=== PATIENT | female | born 1990 | race African-American/Black ===

== ENCOUNTER 2016-10-29 21:13 | Outpatient (CLI) | payer OTHER ==
[~2016-10-29] VITALS: Ht 160 cm; Wt 76.4 kg
[~2016-10-29 21:13] MED LIST: FLAGYL500 MG PO; MACROBID100 MG PO
[2016-10-29 21:36] VITALS: BP 120/73
[2016-10-29 22:30] VITALS: BP 121/62
[2016-10-29 22:35] LABS: EOSINOPHIL (%) 0.3 % (0-5); HEMATOCRIT 31.5 % (36.0-46.0); IMMATURE GRANULOCYTE (%) 0.8 % (0.0-0.7); IMMATURE GRANULOCYTE COUNT 0.1 K/uL; INSTRUMENT ABS NEUTROPHIL CT 6.1 K/uL; LYMPHOCYTE COUNT 0.6 K/uL (1.0-2.8); MCH 26.6 PG (29.0-34.0); MCHC 31.1 G/DL (30.0-36.0); MCV 85.6 FL (83-99); MONOCYTE (%) 5.7 % (3-12); MONOCYTE COUNT 0.4 K/uL (0-0.8); NEUTROPHIL (%) 85.3 % (45-76); NEUTROPHIL COUNT 6.1 K/uL (1.8-6.4); RBC DIS.WIDTH-CV 25.3 % (11.8-14.6); RBC DIS.WIDTH-SD 75.6 % (39-53); RED BLOOD COUNT 3.68 M/uL (3.80-5.20); WHITE BLOOD COUNT 7.2 K/uL (4.1-10.2)
[2016-10-29 22:55] LABS: CANDIDA DNA PROBE NEGATIVE; GARDNERELLA DNA PROBE POSITIVE; INTERNAL CONTROL VALID? YES
[2016-10-29 23:15] LABS: MEAN PLAT.VOLUME 10.2 uM^3 (9.5-12.4); PLAT.SUFFICIENCY DECREASED; PLATELET COUNT 110 K/uL (156-360)
[2016-10-29 23:16] LABS: ADD MIUA? YES; BILIRUBIN NEGATIVE; BLOOD NEGATIVE; COLOR YELLOW ((YELLOW)); GLUCOSE (STRIP) 50; KETONES 20; LEUKOCYTES NEGATIVE; NITRITE NEGATIVE; PROTEIN (STRIP) 100; SPECIFIC GRAVITY 1.015 (1.000-1.030)
[2016-10-29 23:20] LABS: BACTERIA NONE SEEN /HPF; EPITHELIAL CELLS RARE /HPF; MUCUS TRACE /LPF; RED BLOOD CELLS 0-5 /HPF (0-5); UCUL ADDED? NO; WHITE BLOOD CELLS 0-5 /HPF (0-5)
[2016-10-29 23:28] LABS: DRSB INTERNAL CONTROL PASS; PROBE CHECK PASS; SPECIMEN PROCESSING CONTROL PASS
[2016-10-29 23:38] VITALS: BP 125/70
[2016-10-30] VITALS (14 sets, daily range): BP systolic 96–134; BP diastolic 55–81
[2016-10-30 00:02] LABS: ALKALINE PHOSPHATASE 179 IU/L (3-129); ANION GAP 9 MEQ/L (2-14); CHLORIDE 104 MEQ/L (99-109); GFR ESTIMATE (CALCULATED) > 59 mL/min/; GLUCOSE 85 mg/dL (70-99); POTASSIUM 3.1 MEQ/L (3.7-5.4); SAMPLE HEMOLYSIS CHECK 0; SAMPLE ICTERIC CHECK 0; SAMPLE LIPEMIA CHECK 0; SODIUM 136 MEQ/L (136-147); TOTAL BILIRUBIN 0.4 MG/DL (0.0-1.0); UREA NITROGEN (BUN) 5 mg/dL (9-23)
[2016-10-30] MEDS ORDERED: PRENATAL TABLE1 EAC3 PO (07:28)
[2016-10-30] MEDS ORDERED: IRON160 M1 PO (07:29)
[2016-10-31 03:19] VITALS: BP 111/69
[2016-10-31 07:21] VITALS: BP 106/56
[2016-10-31 12:19] LABS: HEMATOCRIT 30.7 % (36.0-46.0); MCH 26.1 PG (29.0-34.0); MCV 87.2 FL (83-99); MEAN PLAT.VOLUME 10.6 uM^3 (9.5-12.4); PLATELET COUNT 118 K/uL (156-360); RBC DIS.WIDTH-CV 24.9 % (11.8-14.6); RBC DIS.WIDTH-SD 75.9 % (39-53); RED BLOOD COUNT 3.52 M/uL (3.80-5.20); WHITE BLOOD COUNT 4.1 K/uL (4.1-10.2)
[2016-10-31 13:46] LABS: CHLAMYDIA TRACHOMATIS NEGATIVE; NEISSERIA GONORRHOEAE NEGATIVE
== END 2016-10-31 14:42 | disposition home or self-care (01) ==
LOC: LDRP-OP 21:13 → 2WEST 21:15 → LDRP-OP 01-14 16:03
PROVIDERS: Midwife; Obstetrics & Gynecology
DX: O60.03 Preterm labor without delivery, third trimester (principal); Z3A.33 33 weeks gestation of pregnancy; O99.013 Anemia complicating pregnancy, third trimester; O99.843 Bariatric surgery status complicating pregnancy, third trimester; Z87.891 Personal history of nicotine dependence; Z86.19 Personal history of other infectious and parasitic diseases
CPT/HCPCS: 59025; 76770; 76818; 80053; 81003; 82731; 85025; 85027; 85384; 87081; 87480; 87491; 87510; 87591; 87653; 87660; G0378; J7120

== ENCOUNTER 2016-12-04 05:04 | Inpatient (IN) | payer OTHER ==
[2016-12-04] VITALS (24 sets, daily range): BP systolic 100–144; BP diastolic 55–86
[~2016-12-04] VITALS: Ht 157.5 cm; Wt 76.3 kg
[~2016-12-04 05:04] MED LIST changes: +IRON160 M1 PO; +PRENATAL TABLE1 EAC3 PO
[2016-12-04 08:42] LABS: EOSINOPHIL (%) 3.2 % (0-5); EOSINOPHIL COUNT 0.3 K/uL (0-0.3); HEMATOCRIT 31.7 % (36.0-46.0); IMMATURE GRANULOCYTE (%) 0.4 % (0.0-0.7); INSTRUMENT ABS NEUTROPHIL CT 5.1 K/uL; LYMPHOCYTE COUNT 2.2 K/uL (1.0-2.8); MCH 26.9 PG (29.0-34.0); MCHC 31.2 G/DL (30.0-36.0); MCV 86.1 FL (83-99); MEAN PLAT.VOLUME 11.2 uM^3 (9.5-12.4); MONOCYTE (%) 6.9 % (3-12); MONOCYTE COUNT 0.6 K/uL (0-0.8); NEUTROPHIL (%) 62.3 % (45-76); NEUTROPHIL COUNT 5.1 K/uL (1.8-6.4); PLATELET COUNT 124 K/uL (156-360); RBC DIS.WIDTH-CV 18.1 % (11.8-14.6); RBC DIS.WIDTH-SD 55.3 % (39-53); RED BLOOD COUNT 3.68 M/uL (3.80-5.20); WHITE BLOOD COUNT 8.1 K/uL (4.1-10.2)
[2016-12-04] MEDS ORDERED: IBUPROFEN800 MG PO (12:23)
[2016-12-05 07:15] LABS: HEMATOCRIT 30.3 % (36.0-46.0); MCH 27.5 PG (29.0-34.0); MCHC 31.7 G/DL (30.0-36.0); MCV 86.8 FL (83-99); RBC DIS.WIDTH-CV 18.3 % (11.8-14.6); RBC DIS.WIDTH-SD 55.8 % (39-53); RED BLOOD COUNT 3.49 M/uL (3.80-5.20); WHITE BLOOD COUNT 8.3 K/uL (4.1-10.2)
[2016-12-05 07:18] VITALS: BP 130/81
[2016-12-05 07:44] LABS: EOSINOPHIL (%) 4.1 % (0-5); EOSINOPHIL COUNT 0.3 K/uL (0-0.3); IMMATURE GRANULOCYTE (%) 0.4 % (0.0-0.7); INSTRUMENT ABS NEUTROPHIL CT 5.1 K/uL; LYMPHOCYTE COUNT 2.1 K/uL (1.0-2.8); MONOCYTE (%) 8.2 % (3-12); MONOCYTE COUNT 0.7 K/uL (0-0.8); NEUTROPHIL (%) 62.2 % (45-76); NEUTROPHIL COUNT 5.1 K/uL (1.8-6.4); PLAT.SUFFICIENCY DECREASED; PLATELET COUNT 139 K/uL (156-360)
[2016-12-05 15:08] VITALS: BP 142/72
[2016-12-05 23:10] VITALS: BP 136/74
[2016-12-06 06:45] VITALS: BP 138/94
== END 2016-12-06 15:20 | disposition home or self-care (01) | DRG 775 ==
LOC: LDRP-OP 05:04 → 2WEST 05:05 → LDRP-OP 01-14 15:36
PROVIDERS: Nurse Practitioner
DX: O69.1XX0 Labor and delivery complicated by cord around neck, with compression, not applicable or unspecified (principal); O99.824 Streptococcus B carrier state complicating childbirth; Z3A.38 38 weeks gestation of pregnancy; Z37.0 Single live birth; O99.02 Anemia complicating childbirth; D50.9 Iron deficiency anemia, unspecified; O99.844 Bariatric surgery status complicating childbirth; O99.12 Other diseases of the blood and blood-forming organs and certain disorders involving the immune mechanism complicating childbirth; D69.59 Other secondary thrombocytopenia
CPT/HCPCS: 85025; C1755; J1050; J2540; J2795; J3010; J7120

== ENCOUNTER 2017-07-21 08:19 | Day surgery (SDC) | payer OTHER ==
[~2017-07-21] VITALS: Ht 160 cm; Wt 71.2 kg
[~2017-07-21 08:19] MED LIST changes: +FEOSOL325 MG PO; +IBUPROFEN800 MG PO; +NUVARING VAGIN1 EACH VG; +VALTREX50 MG/ML PO
[2017-07-21 08:53] LABS: HEMOGLOBIN 11.2 G/DL (11.9-15.5); MCH 25.8 PG (29.0-34.0); MCHC 31.1 G/DL (30.0-36.0); MCV 82.9 FL (83-99); PLATELET COUNT 202 K/uL (156-360); RBC DIS.WIDTH-CV 15.2 % (11.8-14.6); RBC DIS.WIDTH-SD 46.1 % (39-53); RED BLOOD COUNT 4.34 M/uL (3.80-5.20); WHITE BLOOD COUNT 6.3 K/uL (4.1-10.2)
[2017-07-21] MEDS ORDERED: OXYCODONE HCL5 MG PO (13:51)
[2017-07-21] MEDS ORDERED: MOTRIN800 MG PO (13:51)
[2017-07-21 14:35] VITALS: BP 127/82
[2017-07-21 16:01] VITALS: BP 122/77
== END 2017-07-21 16:05 | disposition home or self-care (01) ==
LOC: SDC 08:19
PROVIDERS: Obstetrics & Gynecology Obstetrics
PROC: 0U574ZZ Destruction of Bilateral Fallopian Tubes, Percutaneous Endoscopic Approach (ICD-10-PCS; principal; 2017-07-21)
DX: Z30.2 Encounter for sterilization (principal)
CPT/HCPCS: 84702; 85027; J0131; J1100; J1170; J1885; J2250; J2405; J2710; J3010; J7643; Q0175; S0020